=== PATIENT | female | born 1955 | race Caucasian/White ===

== ENCOUNTER 2017-07-08 10:37 | Emergency (ER) | payer OTHER ==
[~2017-07-08] VITALS: Ht 170.2 cm; Wt 63.5 kg
[~2017-07-08 10:37] MED LIST: SYNTHROID100 MCG PO
== END 2017-07-08 15:08 | disposition home or self-care (01) ==
LOC: ER 10:37
DX: S80.02XA Contusion of left knee, initial encounter (principal); S90.32XA Contusion of left foot, initial encounter; W18.39XA Other fall on same level, initial encounter; Y93.89 Activity, other specified; Y92.89 Other specified places as the place of occurrence of the external cause; Y99.8 Other external cause status

== ENCOUNTER 2017-07-08 16:36 | Outpatient (CLI) | payer OTHER | END 2017-07-08 16:50 | disposition home or self-care (01) | LOC: TOM 16:36 | DX: S90.32XA Contusion of left foot, initial encounter (principal) ==

== ENCOUNTER 2017-08-01 09:51 | Outpatient (CLI) | payer OTHER | END 2017-08-01 10:03 | disposition home or self-care (01) | LOC: RAD 501 09:51 | DX: S92.315A Nondisplaced fracture of first metatarsal bone, left foot, initial encounter for closed fracture (principal) ==